=== PATIENT | male | born 1990 | race Caucasian/White ===

== ENCOUNTER → 2018-09-09 06:58 | Outpatient (CLI) | payer OTHER, SELFPAY ==
--- NOTE | 2018-09-09 | DI.MRI.S_ITS ---
PROCEDURE: MR HEAD/BRAIN WO/W CON INDICATIONS: DISORDER OF NERVOUS SYSTEM TECHNIQUE: Noncontrast axial T1 spin echo, axial T2 fast spin echo, sagittal and axial FLAIR, coronal T2 fast spin echo, axial gradient echo, axial diffusion and ADC through the brain. After the administration of contrast, axial and coronal 3D VIBE or T1 spin echo with fat saturation through the brain. COMPARISON: None. FINDINGS: Image quality: Excellent. CSF Spaces: Basal cisterns are patent. No extra-axial fluid collections. Ventricles are normal in size and shape. Brain: No midline shift. No intracranial bleeds or masses. No abnormal intracranial enhancement. The brainstem appears normal. Diffusion-weighted images demonstrate no acute ischemic insults. No chronic ischemic insults. Normal intravascular flow voids are present. Skull and face: Calvarial marrow is normal in signal. Orbits appear normal. Sinuses: Sinuses and mastoids appear clear. IMPRESSION: 1. Negative evaluation of the brain. 2. No acute process. 3. No recent infarct. Dictated by: Arin Roman M.D. on 09/09/2018 at 11:43 Approved by: Arin Roman M.D. on 09/09/2018 at 11:45
--- NOTE | 2018-09-09 | DI.MRI.S_ITS ---
PROCEDURE: MR CERVICAL SPINE WO/W CON INDICATIONS: DISORDER OF NERVOUS SYSTEM TECHNIQUE: Noncontrast sagittal T1 spin echo and T2 fast spin echo, sagittal STIR, foraminal oblique sagittal T2 fast spin echo, axial gradient echo or T2 fast spin echo through the cervical spine. After the administration of contrast, axial and sagittal T1 spin echo with fat saturation through the cervical spine. COMPARISON: None. FINDINGS: Image quality: Excellent. Alignment and curvature: There is loss of normal cervical lordosis. There is mild kyphosis centered at C5-C7. Marrow: Marrow is normal in overall signal, without suspicious enhancement. Spinal cord: Visualized spinal cord has normal size. At the C5-C6 disc space level, there are ill-defined foci of T2 signal elevation within the right and left hemicord, each of which measures roughly 8 mm craniocaudal by 3 mm transverse by 2 mm anteroposterior. No cerebellar tonsillar herniation. No abnormal intramedullary enhancement. Paraspinous soft tissues: No paravertebral masses or suspicious enhancement. C2-3: Congenital canal stenosis. There is overall mild canal stenosis. No foraminal stenosis. C3-4: Congenital canal stenosis. There is overall moderate canal stenosis. No foraminal stenosis. C4-5: Congenital canal stenosis. Mild disc height loss and desiccation. Mild diffuse disc bulge. Mild facet and uncovertebral hypertrophy. Severe canal stenosis. Mild cord flattening. No foraminal stenosis. C5-6: Congenital canal stenosis. Mild disc height loss and desiccation. Mild diffuse disc bulge. Mild facet and uncovertebral hypertrophy. Severe canal stenosis. Moderate cord flattening. Mild foraminal stenosis bilaterally. C6-7: Congenital canal stenosis. Mild disc height loss and desiccation. Mild diffuse disc bulge. Mild facet and uncovertebral hypertrophy. Moderate canal stenosis. No foraminal stenosis. C7-T1: Normal appearance. IMPRESSION: 1. Diffuse congenital canal stenosis with superimposed disc and facet disease, as well as uncovertebral hypertrophy. 2. Multilevel canal stenoses, worst at C4-C5 and C5-C6, where there is cord flattening present. 3. Abnormal cord signal at the C5-C6 disc space level, most suggestive of sequelae of cord injury/gliosis, given the concomitant cord flattening at this level. Dictated by: Arin Roman M.D. on 09/09/2018 at 11:48 Approved by: Arin Roman M.D. on 09/09/2018 at 11:53
== END ==
PROVIDERS: Visit Provider Orthopaedic Surgery
DX: G98.8 Other disorders of nervous system (principal); M48.02 Spinal stenosis, cervical region
CPT/HCPCS: 70553; 72156; A9579

== ENCOUNTER → 2018-09-17 11:05 | Outpatient (CLI) | payer OTHER, SELFPAY ==
--- NOTE | 2018-09-17 | DI.RAD.S_ITS ---
PROCEDURE: XR CERVICAL SPINE 4V OR 5V INDICATIONS: CERVICAL SPONDYLOSIS WITH MYSLOPATHY TECHNIQUE: 5 views of the cervical spine acquired. COMPARISON: [facility], MR, MR CERVICAL SPINE WO/W CON, 09/09/2018, 7:36. FINDINGS: Bones: No fractures or dislocations to the C7 level. Oblique images demonstrate no bony foraminal stenoses. Soft tissues: No prevertebral soft tissue swelling. IMPRESSION: Normal cervical spine radiograph. Dictated by: Beth Salinas M.D. on 09/17/2018 at 17:01 Approved by: Beth Salinas M.D. on 09/17/2018 at 17:04
== END ==
PROVIDERS: Visit Provider Physician Assistant
DX: M47.12 Other spondylosis with myelopathy, cervical region (principal)
CPT/HCPCS: 72050

== ENCOUNTER → 2019-05-17 09:44 | Outpatient (CLI) | payer OTHER, SELFPAY | PROVIDERS: Visit Provider Physician Assistant | DX: Z01.812 Encounter for preprocedural laboratory examination (principal) | CPT/HCPCS: 36415; 80323 ==